=== PATIENT | male | born 1990 | race Caucasian/White ===

== ENCOUNTER 2018-09-05 14:15 | Outpatient (CLI) | payer OTHER ==
[~2018-09-05 14:15] MED LIST: CEFUROXIME250 MG PO; GILPHEX TR TAB1 EACH PO; NAPROXEN SODIU550 M1 PO
== END 2018-09-05 14:34 | disposition home or self-care (01) ==
LOC: MRI 14:15
DX: M06.872 Other specified rheumatoid arthritis, left ankle and foot (principal); M12.872 Other specific arthropathies, not elsewhere classified, left ankle and foot; M19.072 Primary osteoarthritis, left ankle and foot
CPT/HCPCS: 73721

== ENCOUNTER 2018-10-10 01:24 | Emergency (ER) | payer OTHER ==
[~2018-10-10] VITALS: Ht 177.8 cm; Wt 73.5 kg
[2018-10-10] MEDS ORDERED: FOLIC ACID0.4 MG (02:04)
[2018-10-10] MEDS ORDERED: INTESTINEX680 M1 PO (06:17)
[2018-10-10] MEDS ORDERED: PEPCID AC20 MG PO (06:17)
[2018-10-10] MEDS ORDERED: ZOFRAN ODT4 MG SL (06:17)
[2018-10-10] MEDS ORDERED: LEVSIN/SL0.125 MG SL (06:17)
== END 2018-10-10 08:25 | disposition home or self-care (01) ==
LOC: ER 01:24
DX: K52.9 Noninfective gastroenteritis and colitis, unspecified (principal)